=== PATIENT | male | born 1935 | race Caucasian/White ===

== ENCOUNTER 2016-08-10 16:51 | Emergency (ER) | payer MEDICARE | END 2016-08-10 17:50 | disposition home or self-care (01) | LOC: ED 16:51 | DX: R33.9 Retention of urine, unspecified (principal); E11.9 Type 2 diabetes mellitus without complications; E78.5 Hyperlipidemia, unspecified; E78.00 Pure hypercholesterolemia, unspecified; G60.0 Hereditary motor and sensory neuropathy; K21.9 Gastro-esophageal reflux disease without esophagitis; I50.9 Heart failure, unspecified; Z95.0 Presence of cardiac pacemaker; Z87.891 Personal history of nicotine dependence; Z79.899 Other long term (current) drug therapy; Z91.048 Other nonmedicinal substance allergy status ==

== ENCOUNTER 2016-08-16 16:29 | Emergency (ER) | payer MEDICARE ==
[2016-08-16] MEDS ORDERED: HYDROMORPHONE HCL 1 MG/ML SYRINGE ONE (16:56)
[2016-08-16] MEDS ORDERED: ONDANSETRON 4 MG/2ML 2 ML VIAL ONE (16:56)
[2016-08-16] MEDS ORDERED: SODIUM CHLORIDE 0.9% 500 ML ONE ×2 (18:09→19:23)
[2016-08-16] MEDS ORDERED: ONDANSETRON 4 MG ODT TAB ONE (20:21)
== END 2016-08-16 20:32 | disposition home or self-care (01) ==
LOC: ED 16:29
DX: T83.518A Infection and inflammatory reaction due to other urinary catheter, initial encounter (principal); N39.0 Urinary tract infection, site not specified; B96.89 Other specified bacterial agents as the cause of diseases classified elsewhere; R31.9 Hematuria, unspecified; R33.9 Retention of urine, unspecified; E11.9 Type 2 diabetes mellitus without complications; K21.9 Gastro-esophageal reflux disease without esophagitis; E78.5 Hyperlipidemia, unspecified; G60.0 Hereditary motor and sensory neuropathy; I48.91 Unspecified atrial fibrillation
CPT/HCPCS: 96375; 99284; 96374; 51702; 96361; 93005; 99283; J1170; J2405; J7040 ×2; A9270

== ENCOUNTER 2016-08-21 16:09 | Observation (INO) | payer MEDICARE ==
[2016-08-21] MEDS ORDERED: ONDANSETRON 4 MG/2ML 2 ML VIAL ONE (16:56)
[2016-08-21] MEDS ORDERED: PANTOPRAZOLE SODIUM 40 MG VIAL IV ONE (16:56)
[2016-08-21] MEDS ORDERED: CEFEPIME HCL 2 GM ONE (17:08)
[2016-08-21 17:10] LABS: ABSOLUTE NEUTROPHIL COUNT 6.7 K/mm3 (1.8-7.7); BASO # 0.1 K/mm3 (0.0-0.2); BASO % 0.6 % (0.2-1.0); EOS # 0.6 (0.0-0.5); EOS % 5.6 % (0.9-2.9); HEMATOCRIT 40.8 % (32.0-52.0); HEMOGLOBIN 13.1 gm/l (14.0-18.0); IMM NEUT # 0.1 K/mm3 (0-0.2); IMM NEUT% 0.6 % (0-1); LYMPH # 2.7 (1.0-4.8); LYMPH % 24.8 % (15-45); MEAN CELL VOLUME 87.6 fl (80.0-94.0); MEAN CORPUSCULAR HEMOGLOBIN 28.1 pg (27.0-31.0); MEAN CORPUSCULAR HGB CONC 32.1 g/dl (33.0-37.0); MEAN PLATELET VOLUME 9.5 fl (7.4-10.4); MONO # 0.8 (0.0-0.8); NEUT % 61.4 % (43-75); PLATELET COUNT 345 K/mm3 (130-400); RED CELL DISTRIBUTION WIDTH 15.6 % (11.5-14.5)
[2016-08-21] MEDS ORDERED: [UNRECOGNIZED DRUG - OTHER] IV ONE (17:10)
[2016-08-21] MEDS ORDERED: NS 0.9% IV ONE (17:10)
[2016-08-21] MEDS ORDERED: NS 0.9% (MINI-BAG PLUS) 50 ML IV ONE (17:20)
[2016-08-21 17:27] LABS: I-STAT CREATININE 1.1 mg/dL (0.6-1.3)
[2016-08-21 17:33] LABS: URINE BILIRUBIN NEGATIVE (NEGATIVE); URINE BLOOD 4+ (NEGATIVE); URINE GLUCOSE (UA) NEGATIVE (NEGATIVE); URINE LEUKOCYTE ESTERASE 2+ (NEGATIVE); URINE NITRITE POSITIVE (NEGATIVE); URINE PROTEIN 2+ (NEGATIVE); URINE UROBILINOGEN NORMAL (0-1 mg/dl)
[2016-08-21 17:40] LABS: URINE APPEARANCE TURBID; URINE COLOR DARK YELLOW
[2016-08-21] MEDS ORDERED: MAGNESIUM HYDROXIDE 30 ML UDCUP PO PRN (18:24)
[2016-08-21] MEDS ORDERED: MENTHOL/CETYLPYRD 1 EACH LOZENGE PO PRN (18:24)
[2016-08-21] MEDS ORDERED: BISACODYL 10 MG SUP PR PRN (18:24)
[2016-08-21] MEDS ORDERED: BLISTEX LIPSTICK 1 EACH TP PRN (18:24)
[2016-08-21] MEDS ORDERED: BISACODYL 5 MG TABLET.EC PO PRN (18:24)
[2016-08-21] MEDS ORDERED: SODIUM CHLORIDE 0.9% 100 ML IV PRN (18:24)
[2016-08-21 18:29] VITALS: BMI 29.9
[2016-08-21 18:36] LABS: URINE AMORPHOUS SEDIMENT MODERATE; URINE BACTERIA 2+; URINE RBC 50-60 /hpf; URINE WBC >100 /hpf
[2016-08-21] MEDS ORDERED: OXYCODONE HCL 5 MG TABLET PO PRN (18:37)
[2016-08-21] MEDS ORDERED: QUETIAPINE FUMARATE 25 MG TABLET PO PRN (18:37)
[2016-08-21] MEDS ORDERED: DIPHENHYDRAMINE HCL 25 MG CAPSULE PO PRN (18:37)
[2016-08-21] MEDS ORDERED: PSEUDOEPHEDRINE HCL 30 MG TABLET PO PRN (21:00)
[2016-08-21] MEDS ORDERED: SIMVASTATIN 40 MG TABLET PO SCH (21:00)
[2016-08-21] MEDS ORDERED: Cefepime HCl 1 G in NS 0.9% (MINI-BAG PLUS) 50 ML IV SCH (21:00)
[2016-08-21] MEDS: DABIGATRAN ETEXILATE MESYLATE 75 MG CAPSULE PO SCH (21:14)
[2016-08-21] MEDS: DOCUSATE SODIUM 100 MG CAPSULE PO SCH (21:15)
[2016-08-21] MEDS: GUAIFENESIN 600 MG TABLET.DR PO SCH (21:15)
--- NOTE | 2016-08-21 23:05 | HP ---
MAGALY ROBLES [id number] DATE OF ADMISSION: 08/21/2016 CHIEF COMPLAINT: Urinary tract infection with resistant organism. HISTORY OF PRESENT ILLNESS: The patient is a 81-year-old male with a history of previous urinary tract infections associated with chronic Pittman catheterization. He had a urine test done earlier which had shown enterococcus and E-coli. He completed a course of antibiotics, his thinks this was levofloxacin, and on having a recheck early this week he had a culture showing persisting pseudomonas aeruginosa which was not present on the original culture. The sensitivity profile suggested a need for IV antibiotics and since he was having continued burning symptoms Dr. Thornton was interested in having the patient admitted for PICC line placement and initiation of antibiotic therapy with drugs such as cefepime. The reports some burning pain associated with this, treated with oxycodone. His catheter was last changed Thursday, revised from a 24-Comoran to an 18-Comoran. He had had some blood clots present. He has had some decreased oral intake as well. PAST MEDICAL HISTORY: Remarkable for: 1. Chronic urinary catheterization for incontinence to prevent recurrent infection. He has not been able to tolerate other forms such as urination due to incontinence, so Dr. Rivers has placed him on this. They have not followed-up with him recently. 2. He has had a history of chronic pleural effusion and has had thoracentesis, last done two months ago. 3. Diabetes mellitus Type-2 with neuropathy. 4. Peripheral artery disease. 5. Hypertension. 6. Akrfhdi-Irrra-Vslca. He does not stand or walk. 7. Obstructive sleep apnea, intolerant to CPAP. 8. History of COPD with some cough, increased recently. 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 9. He has had a history of TIA. 10. History of pulmonary embolus. 11. History of atrial fibrillation, and he has since spontaneously converted. He is on Pradaxa chronically. 12. He has a reported history of CHF. His echocardiogram from 2016 showed a left ventricular ejection fraction estimated at 60-65%, which would suggest primarily diastolic dysfunction. PAST SURGICAL HISTORY: 1. Status post below-knee amputation on the left in 2004. 2. History of appendectomy. 3. Cataract replacement. 4. Right foot surgery. 5. History of tonsillectomy. 6. Pacer placement. ALLERGIES: No known drug allergies, except for he has previously had reactions to plastic tape. MEDICATIONS: He takes: 1. Seroquel 25 mg at bedtime as needed. 2. Pradaxa 150 mg by mouth twice a day. 3. Vitamin D-3, 5,000 units daily. 4. Lasix 40 mg by mouth every morning. 5. Mucinex D by mouth twice a day. 6. Oxycodone 10 mg as needed pain. 7. Omeprazole 20 mg daily. 8. Potassium chloride 10 mEq two by mouth daily. 9. Simvastatin 40 mg by mouth at bedtime. 10. Allergy Relief Benadryl 25 mg at night for itching. 11. He had previously been on levofloxacin according to his . 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 He has been 51 years. He has had three kids, but one of them had . His POLST form requested DNR status, but would accept antibiotics hospitalization. He has a history of smoking, quit in the s. Rare alcohol use. He is [place]. He enjoys [employer] and car [employer]. FAMILY HISTORY: Father at 65. Mom at 86. Son at age 37 of [place]. REVIEW OF SYSTEMS: HEENT - eyes have been okay. Ears, somewhat decreased hearing, consistent with age. He does not wear hearing aids. Nose has been okay. Mouth has been okay. mentions that he does have some decreased taste acuity and does not like how his foods taste. Teeth, no complaints. Neck - has been okay. Pulmonary - breathing okay. He uses oxygen chronically, recommended to be 24/7 at two liters. Heart - no acute complaints. GI - stomach, no complaints, but some decreased appetite. does report he has lost weight, from about 300 pounds to 230 over the last year. He has had no diarrhea. He had a large bowel movement today. His last meal was half of a Eliot at noon today. - cath has been in, it fritz and it hurts some, and he has some dysuria. Extremities - legs can hurt sometimes. He has had no ulcerations recently. No decubitus ulcers known to at this time. CODE STATUS: POLST form says DNR. PHYSICAL EXAMINATION: GENERAL: A nontoxic male who is alert and answers, although has some mild confusion noted. VITAL SIGNS: Temperature is 98.7. Blood pressure 103/55. Respirations 18. Pulse 92. Saturation 94% on room air. HEENT: Head is normocephalic, atraumatic. Pupils are small bilaterally after receiving pain medicine. Ears, some cerumen noted on the right. Hearing is adequate. Nose is normal. Mouth, dentition generally okay. NECK: Supple. No masses and no adenopathy. LUNGS: Generally clear to auscultation bilaterally, but habitus makes exam difficult. HEART: Distant, but regular. No significant murmur noted. ABDOMEN: Soft, nontender and nondistended. Bowel sounds are normal. GENITOURINARY: Retractile penis. A Pittman has been placed. EXTREMITIES: Left BKA, well-healed and stable. Right leg with duskiness and purple discoloration of the foot, advanced skin cracking and onychomycosis. There is a small amount of blood on the medial aspect of the 3rd toenail and a small abrasion on the dorsum of two of the toes as well, present on admission. There is a pain patch of the [id number] variety that has menthol, placed on the heel, but this was not removed at this time. The reports that he does not have an ulceration here at this time. Advanced cracking of the skin noted, but no cellulitis. Perfusion is poor and difficult to feel any pulse here. NEUROLOGIC: He is oriented to location and month, but has difficulty with year and date. Cranial nerves appear to be intact. Speech is clear. He does appear to be slightly medicated. LABS: White count 11.0, hemoglobin 13.1 and platelets 345. Lactate is still pending. C02 is 30. Sodium 134, potassium 4.0, chloride 95, C02 of 13, BUN of 1.1, glucose 114, calcium ionized is 1.09. Urinalysis with 2+ protein, 4+ blood, 2+ leukocyte esterase, positive nitrite, and his urine also shows greater than 100 white cells, 50-60 red cells and 2+ bacteria. Urine culture from 08/18/2016 showed pseudomonas aeruginosa. Previous culture from 08/10/2016 shows E-coli resistant to fluoroquinolones and enterococcus faecalis, generally sensitive to all drugs tested. IMAGING: There has been no imaging. EKG: No EKG. ASSESSMENT/PLAN: 1. Recurrence of urinary tract infection associated with chronic indwelling Pittman catheter. E-coli enterococcus cultured last month. At this time it appears to be pseudomonas. PCP requested admission for PICC line placement, IV antibiotics, and has been started on cefepime, and will continue on this 1 gram every eight hours. At this time the patient does not appear to be septic, but only having some burning complaints. Will continue on oxycodone as needed. 2. [id number]-[id number]-Gfbpm, chronic. 3. Chronic indwelling catheter. Suggested follow-up with his urologist to see if any other way could be done to avoid this. He is currently using this to protect his skin, as he has had problems with incontinence and his neurologic disease makes movement very hard for him. At this time they do not wish to discontinue a Pittman catheter. 4. Diabetes mellitus Type-2. CBGs anticipated, although is last A1C appears to have been pretty good and he is not on any current medications for this. 5. Chronic pleural effusion, not otherwise addressed. Monitor sats. 6. COPD. Plan nebulizers PRN and continue the regular oxygen at two liters that he has been on chronically. 7. History of CHF, clinically stable. BNP last year was good and his ejection fraction was 60-65%. He does not appear to be clinically changed at this time. 8. Venous thrombosis prophylaxis status. He and will be on Pradaxa for his atrial fibrillation, so is felt to be low-risk. 9. DNR status. This is ordered. 10. History of reflux. Will continue on PPI. 11. Remote history of pulmonary embolus. He is on Pradaxa. cc: Dr. Brock Baker
[2016-08-22] MEDS ORDERED: PUMP TUBING ONE (00:39)
[2016-08-22] MEDS: Cefepime HCl 1 G in NS 0.9% (MINI-BAG PLUS) 50 ML IV SCH ×3 (01:13→16:44)
[2016-08-22] MEDS: GUAIFENESIN 600 MG TABLET.DR PO SCH (08:08)
[2016-08-22] MEDS: DOCUSATE SODIUM 100 MG CAPSULE PO SCH (08:09)
[2016-08-22] MEDS: DABIGATRAN ETEXILATE MESYLATE 75 MG CAPSULE PO SCH (08:18)
[2016-08-22] MEDS ORDERED: VITAMIN D3 1,000 UNITS CAP.LIQ PO SCH (09:00)
[2016-08-22] MEDS ORDERED: POTASSIUM CHLORIDE 10 MEQ TAB.SR PO SCH (09:00)
[2016-08-22] MEDS ORDERED: FUROSEMIDE 40 MG TABLET PO SCH (09:00)
[2016-08-22] MEDS ORDERED: PANTOPRAZOLE 40 MG TABLET DR PO SCH (09:00)
[2016-08-22] MEDS ORDERED: LIDOCAINE 1% (PRES FREE) 5 ML VIAL PF PRN (13:06)
[2016-08-22] MEDS ORDERED: LORAZEPAM 2 MG/ML 1ML SDV IV PRN (13:06)
--- NOTE | 2016-08-22 13:34 | RAD ---
PORTABLE CHEST RADIOGRAPH HISTORY: PICC placement Frontal portable chest radiograph dated 08/22/2016. COMPARISON: 06/20/2016 FINDINGS: FOCAL AIRSPACE OPACITY: Subtle improvement in aeration of the left upper lung. Residual mediastinal shift. Opacity compatible with a combination of atelectasis or pleural effusion. CARDIOMEDIASTINAL SILHOUETTE: Limited assessment due to opacification of left hemithorax. Right upper extremity approach venous catheter, tip projecting over right atrium. Dual-lead pacer is noted. PNEUMOTHORAX: None identified. OSSEOUS STRUCTURES: No grossly destructive lesions. IMPRESSION: 1. When compared to prior study, there is slight interval improvement in aeration of the left upper lung field reflect residual density and leftward mediastinal shift. Correlate for atelectasis and pleural effusion, underlying airspace disease and pulmonary lesions not excluded. 2. Dual-lead pacer. 3. Right-sided PICC, tip projecting over right atrium, PICC nurse aware.
[2016-08-22 15:28] VITALS: BP 94/52
[2016-08-22 17:33] LABS: ALB/GLOB RATIO 0.8 (>1.0); ALBUMIN 2.6 gm/dL (3.5-5.7); CALCIUM 8.7 mg/dL (8.6-10.3); MAGNESIUM 1.6 mg/dL (1.9-2.7)
== END 2016-08-22 17:45 | disposition home or self-care (01) ==
LOC: ED 16:09 → MS 17:15
PROVIDERS: ADMIT Family Medicine; ATTEND Family Medicine
PROC: 02HV33Z Insertion of Infusion Device into Superior Vena Cava, Percutaneous Approach (ICD-10-PCS; principal; 2016-08-22)
DX: N39.0 Urinary tract infection, site not specified (principal); B96.5 Pseudomonas (aeruginosa) (mallei) (pseudomallei) as the cause of diseases classified elsewhere; E78.00 Pure hypercholesterolemia, unspecified; G60.0 Hereditary motor and sensory neuropathy; K21.9 Gastro-esophageal reflux disease without esophagitis; E11.42 Type 2 diabetes mellitus with diabetic polyneuropathy; J18.9 Pneumonia, unspecified organism; G47.33 Obstructive sleep apnea (adult) (pediatric); J44.9 Chronic obstructive pulmonary disease, unspecified; Z86.73 Personal history of transient ischemic attack (TIA), and cerebral infarction without residual deficits; Z86.711 Personal history of pulmonary embolism; I48.91 Unspecified atrial fibrillation; I50.30 Unspecified diastolic (congestive) heart failure; Z66 Do not resuscitate
CPT/HCPCS: 83605; 83690; 85025; 87040 ×2; 87086; 80047; 80053; 83735; 81001; 36569; A9270 ×5; C9113; J2405; J7050; J0692 ×2